=== PATIENT | male | born 1995 | race Caucasian/White ===

== ENCOUNTER 2017-07-25 17:33 | Emergency (ER) | payer OTHER ==
[~2017-07-25] VITALS: Ht 177.8 cm; Wt 91.2 kg
[2017-07-25 20:19] VITALS: BP 120/71
== END 2017-07-25 20:19 | disposition home or self-care (01) ==
LOC: ED 17:33
DX: S00.33XA Contusion of nose, initial encounter (principal); X58.XXXA Exposure to other specified factors, initial encounter; Y93.89 Activity, other specified; Y92.89 Other specified places as the place of occurrence of the external cause; Y99.8 Other external cause status

== ENCOUNTER 2018-04-29 16:26 | Emergency (ER) | payer OTHER ==
[~2018-04-29] VITALS: Ht 177.8 cm; Wt 83.9 kg
[2018-04-29 16:39] VITALS: BP 122/76; Ht 177.8 cm; Wt 83.9 kg
== END 2018-04-29 19:25 | disposition home or self-care (01) ==
LOC: ED 16:26
PROC: 2W3EX1Z Immobilization of Right Hand using Splint (ICD-10-PCS; principal; 2018-04-29)
DX: M79.641 Pain in right hand (principal); I25.2 Old myocardial infarction
CPT/HCPCS: A4570

== ENCOUNTER 2018-12-12 16:38 | Emergency (ER) | payer OTHER ==
[~2018-12-12] VITALS: Ht 177.8 cm; Wt 88.9 kg
[2018-12-12 16:40] VITALS: Ht 177.8 cm; Wt 88.9 kg
[2018-12-12 20:09] VITALS: BP 114/69
== END 2018-12-12 20:09 | disposition home or self-care (01) ==
LOC: ED 16:38
DX: J06.9 Acute upper respiratory infection, unspecified (principal); R51 Headache; Z90.89 Acquired absence of other organs

== ENCOUNTER 2019-07-19 11:29 | Emergency (ER) | payer OTHER ==
[~2019-07-19] VITALS: Ht 177.8 cm; Wt 94.8 kg
[2019-07-19 11:43] VITALS: BP 121/64; Ht 177.8 cm; Wt 94.8 kg
== END 2019-07-19 16:10 | disposition home or self-care (01) ==
LOC: ED 11:29
DX: J02.9 Acute pharyngitis, unspecified (principal); Z90.89 Acquired absence of other organs
CPT/HCPCS: 87804

== ENCOUNTER 2020-02-08 14:40 | Emergency (ER) | payer OTHER ==
[~2020-02-08] VITALS: Ht 175.3 cm; Wt 102.1 kg
[2020-02-08 14:48] VITALS: BP 111/73; Ht 175.3 cm; Wt 102.1 kg
== END 2020-02-08 15:58 | disposition home or self-care (01) ==
LOC: ED 14:40
DX: S90.31XA Contusion of right foot, initial encounter (principal); E66.9 Obesity, unspecified; F17.210 Nicotine dependence, cigarettes, uncomplicated; Z68.33 Body mass index [BMI] 33.0-33.9, adult; Z90.89 Acquired absence of other organs; W22.8XXA Striking against or struck by other objects, initial encounter; Y93.89 Activity, other specified; Y92.89 Other specified places as the place of occurrence of the external cause; Y99.8 Other external cause status
CPT/HCPCS: 99406; Q0092

== ENCOUNTER 2020-06-13 18:47 | Emergency (ER) | payer OTHER ==
[~2020-06-13] VITALS: Ht 175.3 cm; Wt 99.1 kg
[2020-06-13 19:39] VITALS: Ht 175.3 cm; Wt 99.1 kg
[2020-06-13 21:42] VITALS: BP 128/77
== END 2020-06-13 21:42 | disposition home or self-care (01) ==
LOC: ED 18:47
DX: S39.012A Strain of muscle, fascia and tendon of lower back, initial encounter (principal); Z90.89 Acquired absence of other organs; W18.30XA Fall on same level, unspecified, initial encounter; Y93.89 Activity, other specified; Y92.89 Other specified places as the place of occurrence of the external cause; Y99.8 Other external cause status
CPT/HCPCS: J1885; Q0092; Q0162